=== PATIENT | male | born 1955 | race Caucasian/White ===

== ENCOUNTER → 2018-04-12 | Outpatient (CLI) | payer OTHER ==
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
== END | disposition home or self-care (01) ==
LOC: SLEEP 10:54
PROVIDERS: ATTEND Internal Medicine
DX: G47.33 Obstructive sleep apnea (adult) (pediatric) (principal); I10 Essential (primary) hypertension; E78.5 Hyperlipidemia, unspecified; R35.1 Nocturia; F17.210 Nicotine dependence, cigarettes, uncomplicated; J34.89 Other specified disorders of nose and nasal sinuses; E66.9 Obesity, unspecified; Z68.32 Body mass index [BMI] 32.0-32.9, adult; Z96.652 Presence of left artificial knee joint; Z98.890 Other specified postprocedural states; Z79.899 Other long term (current) drug therapy
CPT/HCPCS: 99211

== ENCOUNTER → 2018-04-17 | Day surgery (SDC) | payer OTHER ==
[2018-04-13 10:06] VITALS: BMI 31.4
[~2018-04-17] MED LIST: LACTATED RINGERS 1,000 ML IV SCH; LIDOCAINE 1% 20 ML VIAL (10MG/ML) FOR IV START INTRADERMA ONE; PROPOFOL 10 MG/ML 20 ML VIAL IV ONE
[2018-04-17 08:24] VITALS: TEMP 97.3
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
--- NOTE | 2018-04-17 08:47 | P.OP ---
Date of Procedure: 04/17/18 Preoperative Diagnosis: Screening colonoscopy Postoperative Diagnosis: Diverticulosis Procedure(s) Performed: Colonoscopy Anesthesia: MAC Surgeon: Catarino Barron Pathology: none sent Condition: stable Disposition: PACU Description of Procedure: The patient's placed on the endoscopy table in the lateral position. He received IV sedation. Digital rectal exam was performed which revealed no abnormalities. Flexible colonoscope was then placed patient anus passed throughout the entire colon. The ileocecal valve was visualized. The cecum, ascending and transverse colon appeared normal. In the descending and sigmoid colon is mild diverticular changes. Scope was then brought back the rectum and this appeared normal. Scope was withdrawn for patient.
[2018-04-17 09:20] VITALS: BP 145/93; PULSE 92; RESP 18
== END ==
LOC: ORWHC2ENDO 08:03
PROVIDERS: ATTEND Surgery
DX: Z12.11 Encounter for screening for malignant neoplasm of colon (principal); K57.30 Diverticulosis of large intestine without perforation or abscess without bleeding; I10 Essential (primary) hypertension; E78.5 Hyperlipidemia, unspecified; N40.0 Benign prostatic hyperplasia without lower urinary tract symptoms; Z87.891 Personal history of nicotine dependence; Z79.899 Other long term (current) drug therapy
CPT/HCPCS: J2704; G0121

== ENCOUNTER 2023-09-17 13:43 | Observation (INO) | payer MEDICARE, OTHER ==
[2023-09-17] MEDS: SODIUM CHLORIDE 0.9% 1,000 ML IV STA (14:11)
[2023-09-17] MEDS: SODIUM CHLORIDE 0.9% 500 ML 500 ML IV STA (14:12)
--- NOTE | 2023-09-17 14:40 | CT ---
EXAMINATION TYPE: CT brain glenroy krishna DATE OF EXAM: 09/17/2023 COMPARISON: 07/06/2015 HISTORY: pain after fall, facial injury CT DLP: 1200.[address] of the brain was performed. The ventricles, basal cisterns and sulci overlying the cerebral convexities demonstrate enlargement. There is no evidence for intracranial hemorrhage or sulcal effacement. There is decreased attenuatio n about the periventricular white matter and deep white matter of both cerebral hemispheres, compatib le with chronic small vessel ischemia. No mass effects are seen. If symptoms persist consider MRI. Osseous calvarium is intact. IMPRESSION: 1. Age related atrophic and chronic small vessel ischemic change without acute intracranial process seen at this time. CT Cervical Spine: Unenhanced CT of the cervical spine was performed with bone and soft tissue window settings submitted . Coronal and sagittal reconstruction is obtained. There is normal alignment and prevertebral soft tissues. No evidence for acute cervical fracture . Scattered degenerative disc disease and spondylosis. Biapical scarring. IMPRESSION: 1. No evidence for acute fracture or subluxation of the cervical spine.
--- NOTE | 2023-09-17 14:44 | CT ---
EXAMINATION TYPE: CT facial bones wo con DATE OF EXAM: 09/17/2023 COMPARISON: None HISTORY: pain after fall, facial injury CT DLP: 1200.[address] of the facial bones was performed in the axial and coronal planes. Bone and soft tissu e window settings are submitted. There is soft tissue swelling about the nose. I do not see evidence for displaced facial bone fracture or depressed facial bone fracture. The globes are intact. Paranasal sinuses are well-aerated. IMPRESSION: 1. No evidence for depressed or displaced facial bone fracture.
[2023-09-17 14:48] LABS: Basophils % (A) 0 %; Eosinophils # (A) 0.1 k/uL (0-0.7); Eosinophils % (A) 1 %; HCT 46.1 % (39.0-53.0); HGB 14.4 gm/dL (13.0-17.5); Lymphocytes # (A) 0.8 k/uL (1.0-4.8); Lymphocytes % (A) 8 %; MCH 30.2 pg (25.0-35.0); MCHC 31.3 g/dL (31.0-37.0); MCV 96.3 fL (80.0-100.0); Mean Platelet Volume 9.2; Monocytes # (A) 0.6 k/uL (0-1.0); Monocytes % (A) 6 %; Neutrophils # (A) 7.9 k/uL (1.3-7.7); Neutrophils % (A) 84 %; Platelet Count 133 k/uL (150-450); RBC 4.79 m/uL (4.30-5.90); RDW 13.5 % (11.5-15.5); WBC 9.4 k/uL (3.8-10.6)
[2023-09-17 15:03] LABS: ALT 19 U/L (4-49); AST 28 U/L (17-59); African American GFR (CKD) 35 (>60 ml/min/1.73 sqM); Albumin 4.5 g/dL (3.5-5.0); Alkaline Phosphatase 80 U/L (38-126); Anion Gap 8 mmol/L; Blood Urea Nitrogen 42 mg/dL (9-20); Calcium 9.6 mg/dL (8.4-10.2); Carbon Dioxide 22 mmol/L (22-30); Chloride 106 mmol/L (98-107); Glucose 145 mg/dL (74-99); Magnesium 1.8 mg/dL (1.6-2.3); Non-African American GFR(CKD) 30 (>60 ml/min/1.73 sqM); Potassium 5.4 mmol/L (3.5-5.1); Sodium 136 mmol/L (137-145); Total Bilirubin 0.6 mg/dL (0.2-1.3); Total Protein 7.7 g/dL (6.3-8.2)
--- NOTE | 2023-09-17 15:49 | ED ---
General Adult HPI - General Chief complaint: Syncope Stated complaint: Fall/Syncope Time Seen by Provider: 09/17/23 13:49 Source: patient, EMS, RN notes reviewed Mode of arrival: EMS Limitations: no limitations - History of Present Illness Initial comments: 68-year-old male presents emergency department chief complaint of syncope, fall. Patient states he was at home earlier today after trimming his grass in which he states he had a fall. Patient states he fell striking his face. Patient was brought to urgent care at that time and he did state that he showered and felt fine prior to going to urgent care but states he started feeling very lighthea ded, dizzy felt dizzy and passed out reportedly had a syncopal episode. Patient has no complaints at this time other than mild facial pain he has an abrasion of his nose, facial region in which she states his tetanus is up-to-date within the last 5 years he has no complaints of head or neck pain patient was placed in c- collar by EMS he denies any extremity injuries he states that he has falls bec ause his left knee gives out every once a while from prior knee replacement. - Related Data Home Medications Medication Instructions Recorded Confirmed Rosuvastatin Calcium [Crestor] 5 mg PO PC-SUPPER 04/13/18 04/13/18 Tamsulosin HCl [Flomax] 0.4 mg PO PC-SUPPER 04/13/18 04/13/18 atenoloL 25 mg PO PC-SUPPER 04/13/18 04/13/18 Allergies Allergy/AdvReac Type Severity Reaction Status Date / Time No Known Allergies Allergy Verified 09/17/23 13:58 Review of Systems ROS Statement: Those systems with pertinent positive or pertinent negative responses have been documented in the HPI. ROS Other: All systems not noted in ROS Statement are negative. Past Medical History Past Medical History: Hypertension History of Any Multi-Drug Resistant Organisms: None Reported Past Surgical History: Joint Replacement Additional Past Surgical History / Comment(s): left knee replacement Past Psychological History: No Psychological Hx Reported Past Alcohol Use History: None Reported General Exam Limitations: no limitations General appearance: alert, in no apparent distress Head exam: Present: atraumatic, normocephalic, normal inspection Eye exam: Present: normal appearance, PERRL, EOMI. Absent: scleral icterus, conjunctival injection, periorbital swelling ENT exam: Present: normal oropharynx, mucous membranes moist, TM's normal bilaterally, normal external ear exam, other (Abrasion, minimal bleeding present nasal region,). Absent: normal exam Neck exam: Present: normal inspection. Absent: tenderness, meningismus, full ROM (Patient in c-collar), lymphadenopathy Respiratory exam: Present: normal lung sounds bilaterally. Absent: respiratory distress, wheezes, rales, rhonchi, stridor Cardiovascular Exam: Present: regular rate, normal rhythm, normal heart sounds. Absent: systolic murmur, diastolic murmur, rubs, gallop, clicks Course Vital Signs 09/17/23 09/17/23 09/17/23 13:54 15:00 15:30 Temperature 97.9 F Pulse Rate 62 67 58 L Respiratory 18 18 12 Rate Blood Pressure 83/63 102/65 115/66 O2 Sat by Pulse 95 97 92 L Oximetry EKG Findings - EKG Comments: EKG Findings:: EKG performed at 14: 03 sinus bradycardia rate of 63 IA 189 QRS 91 QT/QTc 436/444 - EKG Results: EKG: interpreted by CHERISE Medical Decision Making - Medical Decision Making Was pt. sent in by a medical professional or institution (, PA, MATERIAL CONTROL SPECIALIST, urgent care, hospital, or usp...) When possible be specific @ -Urgent care Did you speak to anyone other than the patient for history (EMS, parent, family, police, friend...)? What history was obtained from this source @ -No Did you review nursing and triage notes (agree or disagree)? Why? @ -I reviewed and agree with nursing and triage notes Were old charts reviewed (outside hosp., previous admission, EMS record, old EKG, old radiological studies, urgent care reports/EKG's, usp records)? Report findings @ -No old charts were reviewed Differential Diagnosis (chest pain, altered mental status, abdominal pain women, abdominal pain men, vaginal bleeding, weakness, fever, dyspnea, syncope, headache, dizziness, GI bleed, back pain, seizure, CVA, palpatations, mental health, musculoskeletal)? @ -Differential Syncope: Valvular disease, hypertrophic cardiomyopathy, pulmonary embolism, tamponade, t achycardia, bradycardia, VA, hypovolemia, hemorrhage, dissection, anemia, intracranial hemorrhage, seizure, hypoglycemia, carbon monoxide poisoning, this is not meant to be an all-inclusive list. ] EKG interpreted by me (3pts min.). @ -As above X-rays interpreted by me (1pt min.). @ -Chest x-ray shows no acute cardiopulmonary process CT interpreted by me (1pt min.). @ -[CT brain, C-spine and facial bones no acute fracture, intracranial hemorrhage, cervical fracture or facial fracture U/S interpreted by me (1pt. min.). @ -None done What testing was considered but not performed or refused? (CT, X-rays, U/S, labs)? Why? @ -None What meds were considered but not given or refused? Why? @ -None Did you discuss the management of the patient with other professionals (professionals i.e. , PA, MATERIAL CONTROL SPECIALIST, lab, RT, psych nurse, psychotherapist social worker, state historical society director, teacher, privacy officer, case sealer)? Give summary @ -No Was smoking cessation discussed for >3mins.? @ -No Was critical care preformed (if so, how long)? @ -No Were there social determinants of health that impacted care today? How? (Homelessness, low income, unemployed, alcoholism, drug addiction, transportation, low edu. Level, literacy, decrease access to med. care, prison, rehab)? @ -No Was there de-escalation of care discussed even if they declined (Discuss DNR or withdrawal of care, Hospice)? DNR status @ -No What co-morbidities impacted this encounter? (DM, HTN, Smoking, COPD, CAD, Cancer, CVA, ARF, Chemo, Hep., AIDS, mental health diagnosis, sleep apnea, morbid obesity)? @ -None Was patient admitted / discharged? Hospital course, mention meds given and route, prescriptions, significant lab abnormalities, going to OR and other pertinent info. @ -@Manage patient found to be acutely dehydrated, acute kidney injury with syncopal episode. Patient was hypotensive upon arrival but blood pressure has improved. Patient be kept on maintenance fluids will have nephrology evaluation and repeat laboratory studies. Undiagnosed new problem with uncertain prognosis? @ -No Drug Therapy requiring intensive monitoring for toxicity (Heparin, Nitro, Insulin, Cardizem)? @ -No Were any procedures done? @ -No Diagnosis/symptom? @ -Syncope, GUSTAVO, dehydration Acute, or Chronic, or Acute on Chronic? @ -Acute Uncomplicated (without systemic symptoms) or Complicated (systemic symptoms)? @ -Complicated Side effects of treatment? @ -No Exacerbation, Progression, or Severe Exacerbation? @ -No Poses a threat to life or bodily function? How? (Chest pain, USA, VA, pneumonia, PE, COPD, DKA, ARF, appy, cholecystitis, CVA, Diverticulitis, Homicidal, Robles icidal, threat to staff... and all critical care pts) @ -Yes low likelihood syncope - Lab Data Result diagrams: 09/17/23 14:15 09/17/23 14:15 Lab Results 09/17/23 09/17/23 09/17/23 Range/Units 14:15 14:15 14:15 WBC 9.4 (3.8-10.6) k/uL RBC 4.79 (4.30-5.90) m/uL Hgb 14.4 (13.0-17.5) gm/dL Hct 46.1 (39.0-53.0) % MCV 96.3 (80.0-100.0) fL MCH 30.2 (25.0-35.0) pg MCHC 31.3 (31.0-37.0) g/dL RDW 13.5 (11.5-15.5) % Plt Count 133 L (150-450) k/uL MPV 9.2 Neutrophils % 84 % Lymphocytes % 8 % Monocytes % 6 % Eosinophils % 1 % Basophils % 0 % Neutrophils # 7.9 H (1.3-7.7) k/uL Lymphocytes # 0.8 L (1.0-4.8) k/uL Monocytes # 0.6 (0-1.0) k/uL Eosinophils # 0.1 (0-0.7) k/uL Basophils # 0.0 (0-0.2) k/uL Sodium 136 L (137-145) mmol/L Potassium 5.4 H (3.5-5.1) mmol/L Chloride 106 (98-107) mmol/L Carbon Dioxide 22 (22-30) mmol/L Anion Gap 8 mmol/L BUN 42 H (9-20) mg/dL Creatinine 2.16 H (0.66-1.25) mg/dL Est GFR (CKD-EPI)AfAm 35 (>60 ml/min/1.73 sqM) Est GFR (CKD-EPI)NonAf 30 (>60 ml/min/1.73 sqM) Glucose 145 H (74-99) mg/dL Calcium 9.6 (8.4-10.2) mg/dL Magnesium 1.8 (1.6-2.3) mg/dL Total Bilirubin 0.6 (0.2-1.3) mg/dL AST 28 (17-59) U/L ALT 19 (4-49) U/L Alkaline Phosphatase 80 (38-126) U/L Troponin I <0.012 (0.000-0.034) ng/mL Total Protein 7.7 (6.3-8.2) g/dL Albumin 4.5 (3.5-5.0) g/dL Disposition Clinical Impression: Syncope, Acute kidney injury, Dehydration Disposition: ADMITTED IP TO THIS HOSP Condition: Fair Referrals: Baldemar Cancino MD [Primary Care Provider] - 1-2 days Time of Disposition: 16:22
[2023-09-17] MEDS ORDERED: ONDANSETRON 4 MG/2 ML VIAL IVP PRN (16:26)
[2023-09-17] MEDS ORDERED: NALOXONE 0.4 MG/ML 1 ML VIAL IV PRN (16:26)
[2023-09-17] MEDS: SODIUM CHLORIDE 0.9% 1,000 ML IV SCH (17:35)
[2023-09-17 18:01] LABS: Prothrombin Time 10.9 sec (10.0-12.5)
[2023-09-17 18:04] LABS: Partial Thromboplastin Time 21.8 sec (22.0-30.0)
[2023-09-17] MEDS: CITALOPRAM HYDROBROMIDE 10 MG TAB PO SCH (20:45)
[2023-09-17] MEDS: ATORVASTATIN 10 MG TAB PO SCH (20:45)
--- NOTE | 2023-09-17 23:15 | P.HPIM ---
History of Present Illness H&P Date: 09/17/23 Chief Complaint: Fall/syncope 68-year-old male, history of hypertension, hyperlipidemia, BPH, presents emergency department chief complaint of syncope, fall. Patient states he was at home earlier today after trimming his grass in which he states he had a fall. Patient states he fell striking his face. Patient was brought to urgent care at that time and he did state that he showered and felt fine prior to going to urgent care but states he started feeling very lightheaded, dizzy felt dizzy and passed out reportedly had a syncopal episode. Patient has no complaints at this time other than mild facial pain he has an abrasion of his nose, facial region in which she states his tetanus is up-to-date within the last 5 years he has no complaints of head or neck pain patient was placed in c-collar by EMS he denies any extremity injuries he states that he has falls because his left knee gives out every once a while from prior knee replacement. Blood work completed in ED reveals a WBC of 9.4, hemoglobin of 14.4 and platelet count of 133, sodium 136, potassium 5.4, BUNs/creatinine of 42/2.16 and blood glucose of 145, troponin is less than 0.012 CT of the head and cervical spine was completed; CT of the head reveals age- related atrophic and chronic small vessel ischemic changes without any acute intracranial process; CT of the cervical spine reveals normal alignment and prevertebral soft tissues with no evidence of acute cervical fracture EKG reveals sinus bradycardia without any acute ST or T wave changes Review of Systems REVIEW OF SYSTEMS: CONSTITUTIONAL: No fever, no malaise, no fatigue. HEENT: No recent visual problems or hearing problems. Denied any sore throat. CARDIOVASCULAR: No chest pain, orthopnea, PND, no palpitations, no syncope. PULMONARY: No shortness of breath, no cough, no hemoptysis. GASTROINTESTINAL: No diarrhea, no nausea, no vomiting, no abdominal pain. NEUROLOGICAL: No headaches, no weakness, no numbness. HEMATOLOGICAL: Denies any bleeding or petechiae. GENITOURINARY: Denies any burning micturition, frequency, or urgency. MUSCULOSKELETAL/RHEUMATOLOGICAL: Denies any joint pain, swelling, or any muscle pain. ENDOCRINE: Denies any polyuria or polydipsia. The rest of the 14-point review of systems is negative. Past Medical History Past Medical History: Hypertension History of Any Multi-Drug Resistant Organisms: None Reported Past Surgical History: Joint Replacement Additional Past Surgical History / Comment(s): left knee replacement Past Psychological History: No Psychological Hx Reported Past Alcohol Use History: None Reported Medications and Allergies Home Medications Medication Instructions Recorded Confirmed Type Rosuvastatin Calcium [Crestor] 5 mg PO HS 04/13/18 09/17/23 History Tamsulosin HCl [Flomax] 0.8 mg PO PC-SUPPER 04/13/18 09/17/23 History Acetaminophen Tab [Tylenol Tab] 1,000 mg PO Q6HR PRN 09/17/23 09/17/23 History Citalopram Hydrobromide [CeleXA] 10 mg PO HS 09/17/23 09/17/23 History Dutasteride 0.5 mg PO PC-SUPPER 09/17/23 09/17/23 History amLODIPine [Norvasc] 10 mg PO DAILY 09/17/23 09/17/23 History atenoloL [Tenormin] 50 mg PO DAILY 09/17/23 09/17/23 History lisinopriL 40 mg PO DAILY 09/17/23 09/17/23 History traMADol HCL 50 mg PO BID PRN 09/17/23 09/17/23 History Allergies Allergy/AdvReac Type Severity Reaction Status Date / Time No Known Allergies Allergy Verified 09/17/23 17:52 Physical Exam Vitals: Vital Signs Temp Pulse Resp BP Pulse Ox 09/17/23 15:30 58 L 12 115/66 92 L 09/17/23 15:00 67 18 102/65 97 09/17/23 13:54 97.9 F 62 18 83/63 95 Intake and Output 09/17/23 09/17/23 09/17/23 06:59 14:59 22:59 Other: Weight 83.461 kg General appearance: Present: average body habitus, cooperative, no acute distress Eyes: Present: anicteric sclerae, EOMI, PERRLA, normal appearance Neck: Present: normal ROM. Absent: lymphadenopathy, rigidity, thyromegaly Carotids: negative: bruit present Thyroid: bilateral: normal size, negative: enlarged, nodule Respiratory: bilateral: CTA, negative: rales, rhonchi, wheezing Cardiovascular: regular: normal: S1, S2 General gastrointestinal: Present: normal bowel sounds, soft. Absent: distended, organomegaly, tenderness Genitourinary Comment(s): deferred Integumentary: Present: normal turgor. Absent: jaundiced, rash, ulcer Neurologic: Present: CNII-XII intact. Absent: focal deficits Musculoskeletal: Present: gait normal, strength equal bilaterall Psychiatric: Present: A&O x's 3, appropriate affect, intact judgment & insight Results CBC & Chem 7: 09/17/23 14:15 09/17/23 14:15 Labs: Abnormal Lab Results - Last 24 Hours (Table) 09/17/23 09/17/23 Range/Units 14:15 14:15 Plt Count 133 L (150-450) k/uL Neutrophils # 7.9 H (1.3-7.7) k/uL Lymphocytes # 0.8 L (1.0-4.8) k/uL Sodium 136 L (137-145) mmol/L Potassium 5.4 H (3.5-5.1) mmol/L BUN 42 H (9-20) mg/dL Creatinine 2.16 H (0.66-1.25) mg/dL Glucose 145 H (74-99) mg/dL Assessment and Plan Assessment: 1. Syncope/collapse -- Patient has been admitted to telemetry; neurochecks per protocol; orthostatic vital signs -- CT of the head and neck completed is unremarkable -Patient remains on telemetry; we will monitor EKG and trend troponin -Ordered bilateral carotid Doppler; vitamin B12 and folic acid levels TSH; -- We will consult cardiology and neurology for further recommendations 2. Facial injuries/nasal abrasions; continue with local wound care; neurochecks per protocol 3. Hyperkalemia; potassium at 5.4 upon admission; currently not on any supplements; likely related to acute renal injury; will monitor electrolytes closely 4. Acute renal injury; patient has been placed on IV fluid hydration form of normal saline at a rate of 75 cc an hour; monitor strict ROSENDO's, daily weights, renal function electrolytes; avoid nephrotoxins and hypotension -- Consult nephrology 5. Hypertension; patient takes lisinopril 40 mg daily, Norvasc 10 mg daily, atenolol 50 mg daily -- We will continue with all antihypertensive medications; hold lisinopril given acute renal injury 6. Hyperlipidemia; Crestor 5 mg p.o. nightly 7. BPH; Flomax 0.4 mg daily 8. Depression; Celexa 10 mg p.o. nightly DVT prophylaxis; SCDs CODE STATUS; full code
[2023-09-18] MEDS: amLODIPine 10 MG TAB PO SCH (08:27)
[2023-09-18] MEDS: atenoloL 50 MG TAB PO SCH (08:27)
--- NOTE | 2023-09-18 08:52 | US ---
EXAMINATION TYPE: US carotid duplex BILAT DATE OF EXAM: 09/18/2023 COMPARISON: NONE CLINICAL INDICATION: Male, 68 years old with history of syncope; dehydrated and passed out, no h/o st [facility] TECHNIQUE: Carotid duplex ultrasound examination. Indirect Doppler criteria was utilized. FINDINGS: EXAM MEASUREMENTS: RIGHT: Peak Systolic Velocity (PSV) cm/sec ----- Right CCA: 69.4 ----- Right ICA: 61.9 ----- Right ECA: 56.6 ICA/CCA ratio: 0.9 RIGHT: End Diastole cm/sec ----- Right CCA: 6.3 ----- Right ICA: 20.5 ----- Right ECA: 5.7 LEFT: Peak Systolic Velocity (PSV) cm/sec ----- Left CCA: 68.9 ----- Left ICA: 70.7 ----- Left ECA: 80.8 ICA/CCA ratio: 1.0 LEFT: End Diastole cm/sec ----- Left CCA: 12.8 ----- Left ICA: 25.2 ----- Left ECA: 0.0 VERTEBRALS (direction of flow): Right Vertebral: Antegrade Left Vertebral: Antegrade Rhythm: Normal LIGHT RAIL SIGNAL TECHNICIAN NOTES: Mild homogeneous plaque with no significant stenosis seen IMPRESSION: Mild atheromatous plaquing without significant flow-limiting stenosis based on velocities. Criteria for Assigning % of Stenosis / Diameter reduction (Estimation based on the indirect measurements of the internal carotid artery velocities (ICA PSV). 1. Normal (no stenosis)=ICA PSV < 125 cm/s: ratio < 2.0: ICA EDV<40 cm/s. 2. Less than 50% stenosis=ICA PSV < 125 cm/s: ratio < 2.0: ICA EDV<40 cm/s. 3. 50 to 69% stenosis=ICA PSV of 125 to 230 cm/s: ration 2.0 ? 4.0: ICA EDV 40-100 cm/s. 4. Greater than 70% stenosis to near occlusion= ICA PSV > 230 cm/s: ratio > 4.0: ICA EDV > 100 cm/s. 5. Near occlusion= ICA PSV velocities may be low or undetectable: variable ratio and ICA EDV. 6. Total occlusion=unable to detect flow.
[2023-09-18 09:18] LABS: Basophils # (A) 0.02 X 10*3/uL (0.00-0.10); Basophils % (A) 0.2 %; Eosinophils # (A) 0.06 X 10*3/uL (0.04-0.35); Eosinophils % (A) 0.6 %; HCT 43.2 % (39.6-50.0); HGB 13.6 g/dL (13.0-17.0); Lymphocytes # (A) 1.52 X 10*3/uL (0.90-5.00); Lymphocytes % (A) 16.3 %; MCH 29.9 pg (27.0-32.0); MCHC 31.5 g/dL (32.0-37.0); MCV 94.9 FL (80.0-97.0); Mean Platelet Volume 10.6 FL (9.5-12.2); Monocytes # (A) 0.86 X 10*3/uL (0.20-1.00); Monocytes % (A) 9.2 %; NRBC Per 100 WBC 0 X 10*3/uL (0.00-0.01); Neutrophils # (A) 6.81 X 10*3/uL (1.80-7.70); Neutrophils % (A) 73.3 %; Platelet Count 220 X 10*3/uL (140-440); RBC 4.55 X 10*6/uL (4.40-5.60); RDW 13.7 % (11.5-14.5); WBC 9.31 X 10*3/uL (4.50-10.00)
[2023-09-18 09:41] LABS: BUN/Creat Ratio 25.94 Ratio (12.00-20.00); Blood Urea Nitrogen 41.5 mg/dL (9.0-27.0); Calcium 9.3 mg/dL (8.7-10.3); Carbon Dioxide 22.8 mmol/L (21.6-31.8); Chloride 103 mmol/L (96-109); Glucose 108 mg/dL (70-110); Magnesium 1.8 mg/dL (1.5-2.4); Potassium 4.8 mmol/L (3.5-5.5); Sodium 136 mmol/L (135-145)
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
[2023-09-18 15:22] LABS: Appearance,Urine Clear (Clear); Bilirubin,Urine Negative (Negative); Blood,Urine Trace (Negative); Color,Urine Colorless; Glucose,Urine (UA) Negative (Negative); Hyaline Casts,Urine 1 /lpf (0-2); Ketones,Urine Negative (Negative); Leukocyte Esterase,Urine Negative (Negative); Nitrite,Urine Negative (Negative); Protein,Urine Negative (Negative); RBC,Urine <1 /hpf (0-5); Specific Gravity,Urine 1.018 (1.001-1.035); Urobilinogen,Urine <2.0 mg/dL (<2.0); WBC,Urine 1 /hpf (0-5)
[2023-09-18] MEDS: FINASTERIDE 5 MG TAB PO SCH (18:21)
[2023-09-18] MEDS: TAMSULOSIN 0.4 MG CAP.ER.24H PO SCH (18:21)
[2023-09-18] MEDS: ACETAMINOPHEN TAB 325 MG TAB PO PRN (18:25)
[2023-09-18] MEDS: traMADol 50 MG TAB PO PRN (18:25)
--- NOTE | 2023-09-19 08:22 | US ---
EXAMINATION TYPE: US kidneys/renal and bladder DATE OF EXAM: 09/19/2023 COMPARISON: 07/06/15 CLINICAL INDICATION: Male, 68 years old with history of yahaira; yahaira EXAM MEASUREMENTS: Right Kidney: 10.5 x 5.4 x 5.9 cm Left Kidney: 10.9 x 5.2 x 5.7 cm Right Kidney: No hydronephrosis or masses seen Left Kidney: No hydronephrosis or masses seen Bladder: wnl Bilateral Jets seen: Yes There is no evidence for hydronephrosis at this point in time. No nephrolithiasis is seen. No maddie s are identified. The urinary bladder is anechoic. Bilateral ureteral jets are seen. IMPRESSION: No evidence for obstructive uropathy or renal calculus.
--- NOTE | 2023-09-19 09:18 | P.PN ---
Subjective Progress Note Date: 09/19/23 This is a 68-year-old male who presented to the emergency department after a fall at home trimming his grass. Patient reportedly fell on his face. He originally had presented to urgent care and reportedly had a syncopal episode and was sent to the emergency room. BUN and creatinine elevated on admission. Imaging has been negative. Ultrasound of kidneys was normal this morning. EEG is also planned for today. Patient is seen and examined sitting up in bed this morning. He is alert and oriented with no current complaints. Objective - Vital Signs Vital signs: Vital Signs Temp 98.1 F 09/19/23 01:54 Pulse 60 09/19/23 01:54 Resp 15 09/19/23 01:54 BP 122/75 09/19/23 01:54 Pulse Ox 96 09/19/23 01:54 FiO2 Intake & Output 09/18/23 09/19/23 09/19/23 18:59 06:59 18:59 Intake Total 0 Balance 0 Weight 83.461 kg Intake: Oral 0 Other: Voiding Method Toilet Toilet # Voids 1 2 - Constitutional General appearance: Present: cooperative, no acute distress - EENT Eyes: Present: PERRLA - Neck Neck: Present: normal ROM. Absent: lymphadenopathy, rigidity - Respiratory Respiratory: bilateral: CTA - Cardiovascular Rhythm: regular Heart sounds: normal: S1, S2 - Gastrointestinal General gastrointestinal: Present: soft. Absent: tenderness - Integumentary Integumentary Comment(s): bruising noted on face Integumentary: Present: normal, normal turgor - Psychiatric Psychiatric: Present: A&O x's 3, appropriate affect, intact judgment & insight - Labs CBC & Chem 7: 09/18/23 05:49 09/18/23 05:49 Labs: Abnormal Lab Results - Last 24 Hours (Table) 09/18/23 09/18/23 09/18/23 Range/Units 05:49 05:49 15:07 MCHC 31.5 L (32.0-37.0) g/dL BUN 41.5 H (9.0-27.0) mg/dL Creatinine 1.6 H (0.6-1.5) mg/dL Est GFR (CKD-EPI) 46 L (>=60) BUN/Creatinine Ratio 25.94 H (12.00-20.00) Ratio Urine Blood Trace H (Negative) Assessment and Plan (1) Acute kidney injury Current Visit: Yes Status: Acute Code(s): N17.9 - ACUTE KIDNEY FAILURE, UNSPECIFIED SNOMED Code(s): 95890305 (2) Dehydration Current Visit: Yes Status: Acute Code(s): E86.0 - DEHYDRATION SNOMED Code(s): 09154745 (3) Syncope Current Visit: Yes Status: Acute Code(s): R55 - SYNCOPE AND COLLAPSE SNOMED Code(s): 312916089 (4) Hypertension Current Visit: Yes Status: Acute Code(s): I10 - ESSENTIAL (PRIMARY) HYPERTENSION SNOMED Code(s): 77828704 (5) Hyperlipidemia Current Visit: Yes Status: Acute Code(s): E78.5 - HYPERLIPIDEMIA, UNSPECIFIED SNOMED Code(s): 03377926 (6) BPH (benign prostatic hyperplasia) Current Visit: Yes Status: Acute Code(s): N40.0 - BENIGN PROSTATIC HYPERPLASIA WITHOUT LOWER URINRY TRACT SYMP SNOMED Code(s): 267264811 Plan: Await results of EEG. Check CMP in the morning. Patient seen and evaluated by nurse practitioner, physician in agreement with plan
[2023-09-19] MEDS: atenoloL 25 MG TAB PO SCH (09:50)
[2023-09-19 10:47] LABS: Basophils # (A) 0.03 X 10*3/uL (0.00-0.10); Basophils % (A) 0.4 %; Eosinophils # (A) 0.12 X 10*3/uL (0.04-0.35); Eosinophils % (A) 1.6 %; HCT 41.2 % (39.6-50.0); HGB 13.1 g/dL (13.0-17.0); Lymphocytes # (A) 1.66 X 10*3/uL (0.90-5.00); Lymphocytes % (A) 22.5 %; MCH 30.5 pg (27.0-32.0); MCHC 31.8 g/dL (32.0-37.0); MCV 95.8 FL (80.0-97.0); Mean Platelet Volume 10.9 FL (9.5-12.2); Monocytes # (A) 0.82 X 10*3/uL (0.20-1.00); Monocytes % (A) 11.1 %; NRBC Per 100 WBC 0 X 10*3/uL (0.00-0.01); Neutrophils # (A) 4.73 X 10*3/uL (1.80-7.70); Platelet Count 201 X 10*3/uL (140-440); RDW 13.5 % (11.5-14.5); WBC 7.39 X 10*3/uL (4.50-10.00)
[2023-09-19 10:53] LABS: BUN/Creat Ratio 23.29 Ratio (12.00-20.00); Blood Urea Nitrogen 32.6 mg/dL (9.0-27.0); Calcium 8.6 mg/dL (8.7-10.3); Carbon Dioxide 20.3 mmol/L (21.6-31.8); Chloride 107 mmol/L (96-109); Glucose 90 mg/dL (70-110); Sodium 137 mmol/L (135-145)
--- NOTE | 2023-09-19 12:43 | P.PN ---
Subjective patient is seen for follow-up for acute kidney injury. Renal function has improved with IV hydration. serum creatinine decreased to 1.4 today. No significant complaints today. Objective - Vital Signs Vital signs: Vital Signs Temp 97.9 F 09/19/23 08:00 Pulse 64 09/19/23 08:00 Resp 16 09/19/23 09:50 BP 122/69 09/19/23 08:00 Pulse Ox 97 09/19/23 08:00 FiO2 Intake & Output 09/18/23 09/19/23 09/19/23 18:59 06:59 18:59 Intake Total 0 118 Balance 0 118 Weight 83.461 kg Intake: Oral 0 118 Other: Voiding Method Toilet Toilet Toilet # Voids 1 2 - Exam patient is awake, comfortable, no acute distress. Alert oriented 3 Abrasion noted on the nose and forehead Examination of the heart S1 and S2 Examination of the lungs bilateral breath sounds are heard Abdomen is soft nontender Examination of lower extremity shows no evidence of edema [employer] exam grossly intact - Labs CBC & Chem 7: 09/19/23 06:45 09/19/23 06:45 Labs: Abnormal Lab Results - Last 24 Hours (Table) 09/18/23 09/19/23 09/19/23 Range/Units 15:07 06:45 06:45 RBC 4.30 L (4.40-5.60) X 10*6/uL MCHC 31.8 L (32.0-37.0) g/dL Carbon Dioxide 20.3 L (21.6-31.8) mmol/L BUN 32.6 H (9.0-27.0) mg/dL Est GFR (CKD-EPI) 54 L (>=60) BUN/Creatinine Ratio 23.29 H (12.00-20.00) Ratio Calcium 8.6 L (8.7-10.3) mg/dL Urine Blood Trace H (Negative) Assessment and Plan Assessment: 1. Acute kidney injury, associated with volume depletion and ATN from hypotension, currently improved. UA is benign. and ultrasound of the kidneys is unremarkable. 2. Syncope secondary to hypotension 3. History of hypertension maintained on Tenormin lisinopril and amlodipine. Tenormin dose is decreased and other medications currently on hold. 4. History of BPH maintained on Proscar Plan: continue to hold JUNE inhibitor's. Agree with decreasing dose of atenolol. Continue with IV fluids. okay for discharge from nephrology standpoint
--- NOTE | 2023-09-19 14:03 | P.PN ---
Subjective Progress Note Date: 09/18/23 68-year-old male, history of hypertension, hyperlipidemia, BPH, presents emergency department chief complaint of syncope, fall. Patient states he was at home earlier today after trimming his grass in which he states he had a fall. Patient states he fell striking his face. Patient was brought to urgent care at that time and he did state that he showered and felt fine prior to going to urgent care but states he started feeling very lightheaded, dizzy felt dizzy and passed out reportedly had a syncopal episode. Patient has no complaints at this time other than mild facial pain he has an abrasion of his nose, facial region in which she states his tetanus is up-to-date within the last 5 years he has no complaints of head or neck pain patient was placed in c-collar by EMS he denies any extremity injuries he states that he has falls because his left knee gives out every once a while from prior knee replacement. Blood work completed in ED reveals a WBC of 9.4, hemoglobin of 14.4 and platelet count of 133, sodium 136, potassium 5.4, BUNs/creatinine of 42/2.16 and blood glucose of 145, troponin is less than 0.012 CT of the head and cervical spine was completed; CT of the head reveals age-rela joy atrophic and chronic small vessel ischemic changes without any acute intracranial process; CT of the cervical spine reveals normal alignment and prevertebral soft tissues with no evidence of acute cervical fracture EKG reveals sinus bradycardia without any acute ST or T wave changes 24-hour interval change 09/18/2023 Patient is seen and evaluated in room at bedside Vital signs are reviewed and remained stable Lab review shows WBC of 9.3, hemoglobin of 13.6 and platelet count of 220, sodium of 136, potassium 4.8, BUNs/creatinine of 41/1.6 which is improved from 42/2.16 yesterday --Bilateral carotid Doppler is completed and is negative for any significant lesion Patient has been evaluated by cardiology; recommending to discontinue Norvasc; continue to hold lisinopril given syncope and dehydration with renal insufficiency -Echocardiogram is ordered and further recommendations after echo is completed Objective - Vital Signs Vital signs: Vital Signs Temp 97.9 F 09/17/23 13:54 Pulse 58 L 09/18/23 11:51 Resp 16 09/18/23 11:51 BP 131/71 09/18/23 11:51 Pulse Ox 96 09/18/23 11:51 FiO2 Intake & Output 09/17/23 09/18/23 09/18/23 18:59 06:59 18:59 Weight 83.461 kg - Exam - Constitutional General appearance: Present: average body habitus, cooperative, no acute distress - EENT Eyes: Present: anicteric sclerae, EOMI, PERRLA, normal appearance ENT: Present: hearing grossly normal, normal oropharynx Ears: bilateral: normal - Neck Neck: Present: normal ROM. Absent: lymphadenopathy, rigidity, thyromegaly Carotids: negative: bruit present Thyroid: bilateral: normal size, negative: enlarged, nodule - Respiratory Respiratory: bilateral: CTA, negative: rales, rhonchi, wheezing - Cardiovascular Rhythm: regular Heart sounds: normal: S1, S2 Abnormal Heart Sounds: Absent: systolic murmur, diastolic murmur - Gastrointestinal General gastrointestinal: Present: normal bowel sounds, soft. Absent: distended, organomegaly, tenderness - Genitourinary Genitourinary Comment(s): deferred - Integumentary Integumentary: Present: normal turgor. Absent: jaundiced, rash, ulcer - Neurologic Neurologic: Present: CNII-XII intact. Absent: focal deficits - Musculoskeletal Musculoskeletal: Present: gait normal, strength equal bilaterally - Psychiatric Psychiatric: Present: A&O x's 3, appropriate affect, intact judgment & insight - Labs CBC & Chem 7: 09/19/23 06:45 09/19/23 06:45 Labs: Abnormal Lab Results - Last 24 Hours (Table) 09/17/23 09/17/23 09/17/23 Range/Units 14:15 14:15 17:22 MCHC (32.0-37.0) g/dL Plt Count 133 L (150-450) k/uL Neutrophils # 7.9 H (1.3-7.7) k/uL Lymphocytes # 0.8 L (1.0-4.8) k/uL APTT 21.8 L (22.0-30.0) sec Sodium 136 L (137-145) mmol/L Potassium 5.4 H (3.5-5.1) mmol/L BUN 42 H (9-20) mg/dL Creatinine 2.16 H (0.66-1.25) mg/dL Est GFR (CKD-EPI) (>=60) BUN/Creatinine Ratio (12.00-20.00) Ratio Glucose 145 H (74-99) mg/dL 09/18/23 09/18/23 Range/Units 05:49 05:49 MCHC 31.5 L (32.0-37.0) g/dL Plt Count (150-450) k/uL Neutrophils # (1.3-7.7) k/uL Lymphocytes # (1.0-4.8) k/uL APTT (22.0-30.0) sec Sodium (137-145) mmol/L Potassium (3.5-5.1) mmol/L BUN 41.5 H (9-20) mg/dL Creatinine 1.6 H (0.66-1.25) mg/dL Est GFR (CKD-EPI) 46 L (>=60) BUN/Creatinine Ratio 25.94 H (12.00-20.00) Ratio Glucose (74-99) mg/dL Assessment and Plan Assessment: 1. Syncope/collapse -- Patient has been admitted to telemetry; neurochecks per protocol; orthostatic vital signs -- CT of the head and neck completed is unremarkable -Patient remains on telemetry; we will monitor EKG and trend troponin -Ordered bilateral carotid Doppler; vitamin B12 and folic acid levels TSH; -- We will consult cardiology and neurology for further recommendations 2. Facial injuries/nasal abrasions; continue with local wound care; neurochecks per protocol 3. Hyperkalemia; potassium at 5.4 upon admission; currently not on any supplements; likely related to acute renal injury; will monitor electrolytes closely 4. Acute renal injury; patient has been placed on IV fluid hydration form of normal saline at a rate of 75 cc an hour; monitor strict ROSENDO's, daily weights, renal function electrolytes; avoid nephrotoxins and hypotension -- Consult nephrology 5. Hypertension; patient takes lisinopril 40 mg daily, Norvasc 10 mg daily, ate nolol 50 mg daily -- We will continue with all antihypertensive medications; hold lisinopril given acute renal injury 6. Hyperlipidemia; Crestor 5 mg p.o. nightly 7. BPH; Flomax 0.4 mg daily 8. Depression; Celexa 10 mg p.o. nightly DVT prophylaxis; SCDs CODE STATUS; full code
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
--- NOTE | 2023-09-19 14:27 | EEG ---
ELECTROENCEPHALOGRAM REPORT PREAMBLE: This is a 68-year-old male with syncope, rule out seizure. CURRENT MEDICATIONS: 1. Dawit. 2. Celexa. 3. Proscar. 4. Zofran. 5. Ultram. EEG FINDINGS: This is a 21-channel digital EEG recorded with video component, utilizing 10/20 international system with referential and bipolar montages. Background consists of well-developed, well-regulated, low amplitude activity in 10-11 hertz alpha. Background is posterior dominant and reactive to eye opening and closing. Photic driving response was not clearly seen. Some drowsiness was seen with appearance of bilaterally symmetric theta frequency rhythm. Deeper stages of sleep were not seen. Some myogenic activity was seen in the temporal region. No focal or generalized epileptiform activity was seen. IMPRESSION: This is a normal awake and drowsy EEG. No focal, lateralized, or epileptiform activity was seen. MMODL / IJN: [id number] /
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
--- NOTE | 2023-09-19 19:09 | P.DS ---
Providers Date of admission: 09/17/23 16:22 Attending physician: Baldemar Cancino Consults: 09/17/23 16:26 Consult Physician Urgent Consulting Provider: Leonarda Aguilar Consult Reason/Comments: GUSTAVO Do you want consulting provider notified?: Yes 09/17/23 20:30 Consult Physician Routine Consulting Provider: Kristen Souza Consult Reason/Comments: Syncope and collapse Do you want consulting provider notified?: Yes 09/17/23 20:31 Consult Physician Routine Consulting Provider: Nicholas Gonzalez Consult Reason/Comments: syncope and collapse Do you want consulting provider notified?: Yes Primary care physician: Baldemar Cancino [facility] Course: The patient was admitted after significant fall. Multiple consultants. No significant issues found in workup except for Acute renal failure. Nephrology was consulted and the patient did have no further falls or dizziness. Cleared by multiple consultants. Followup in 5 days. Patient Condition at Discharge: Fair Plan - Discharge Summary Discharge Rx Participant: No New Discharge Prescriptions: Continue RX: Rosuvastatin Calcium [Crestor] 5 mg PO HS RX: Tamsulosin HCl [Flomax] 0.8 mg PO PC-SUPPER RX: Acetaminophen Tab [Tylenol] 1,000 mg PO Q6HR PRN PRN Reason: Pain Or Fever > 100.5 RX: lisinopriL 40 mg PO DAILY RX: atenoloL [Tenormin] 50 mg PO DAILY RX: Citalopram Hydrobromide [CeleXA] 10 mg PO HS RX: amLODIPine [Norvasc] 10 mg PO DAILY RX: traMADol HCL 50 mg PO BID PRN PRN Reason: Pain RX: Dutasteride 0.5 mg PO PC-SUPPER Discharge Medication List RX: Rosuvastatin Calcium [Crestor] 5 mg PO HS 04/13/18 [History] RX: Tamsulosin HCl [Flomax] 0.8 mg PO PC-SUPPER 04/13/18 [History] RX: Acetaminophen Tab [Tylenol] 1,000 mg PO Q6HR PRN 09/17/23 [History] RX: Citalopram Hydrobromide [CeleXA] 10 mg PO HS 09/17/23 [History] RX: Dutasteride 0.5 mg PO PC-SUPPER 09/17/23 [History] RX: amLODIPine [Norvasc] 10 mg PO DAILY 09/17/23 [History] RX: atenoloL [Tenormin] 50 mg PO DAILY 09/17/23 [History] RX: lisinopriL 40 mg PO DAILY 09/17/23 [History] RX: traMADol HCL 50 mg PO BID PRN 09/17/23 [History] Follow up Appointment(s)/Referral(s): Kristen Souza MD [STAFF PHYSICIAN] - 1 Week (Office will call patient with date and time of appointment) Baldemar Cancino MD [Primary Care Provider] - 1-2 days
[2023-09-19 19:45] VITALS: BP 130/77; PULSE 68; RESP 15; TEMP 97.6
== END 2023-09-19 20:15 | disposition home or self-care (01) ==
LOC: EC 13:43 → 6NMEDSUR 16:22
PROVIDERS: ADMIT Family Medicine; ATTEND Family Medicine
DX: I95.9 Hypotension, unspecified (principal); N17.9 Acute kidney failure, unspecified; I10 Essential (primary) hypertension; N40.0 Benign prostatic hyperplasia without lower urinary tract symptoms; E78.5 Hyperlipidemia, unspecified; E86.0 Dehydration; E87.5 Hyperkalemia; E86.1 Hypovolemia; Z96.652 Presence of left artificial knee joint; Z87.891 Personal history of nicotine dependence; Z79.899 Other long term (current) drug therapy; S00.81XA Abrasion of other part of head, initial encounter; S00.31XA Abrasion of nose, initial encounter; Y93.01 Activity, walking, marching and hiking; W01.0XXA Fall on same level from slipping, tripping and stumbling without subsequent striking against object, initial encounter
CPT/HCPCS: 96360; 96361; 99285; 36415; 95816; 93005; 80053; 80048 ×2; 84443; 82607; 83735 ×2; 84484; 85025 ×3; 85610; 85730; 81001; 76770; 93880; 72125; 70486; 70450; G0378 ×3; S0138